=== PATIENT | male | born 1950 | race Caucasian/White ===

== ENCOUNTER 2021-02-28 14:18 | Inpatient (IN) | payer MEDICARE, OTHER ==
[~2021-02-28] VITALS: Ht 180.3 cm; Wt 127.1 kg
[2021-02-28 15:18] LABS: Basophils # (auto) 0.1 10 ^3/uL (0-0.2); Basophils % (auto) 0.7 % (0.0-2.0); Eosinophils # (auto) 0.2 10 ^3/uL (0-0.8); Eosinophils % (auto) 2.9 % (0.0-7.0); Hemoglobin 13.7 g/dL (13.5-17.5); Lymphocytes # (auto) 2.9 10 ^3/uL (0.4-5.4); Lymphocytes % (auto) 38.6 % (10.0-50.0); Mean Corpuscular Hemoglobin 32.3 pg (28.0-32.0); Mean Corpuscular Hgb Conc. 33.3 g/dL (32.0-36.0); Mean Corpuscular Volume 96.8 fL (80.0-100.0); Monocytes # (auto) 0.7 10 ^3/uL (0-1.3); Monocytes % (auto) 9.1 % (0.0-12.0); Neutrophils # (auto) 3.7 10 ^3/uL (1.6-8.6); Neutrophils % (auto) 48.7 % (37.0-80.0); Nucleated Red Blood Cells % 0.1 %; Red Blood Cells 4.24 10^6/uL (4.5-5.90); White Blood Cell 7.5 10^3/uL (4.4-10.8)
[2021-02-28 15:32] LABS: INR 1.05 (0.9-1.15); Partial Thromboplastin Time 30.7 sec (23.6-33.0)
[2021-02-28 15:45] LABS: Calcium 8.2 mg/dL (8.5-10.1); Potassium 3.7 mmol/L (3.5-5.1)
[2021-02-28 15:48] LABS: BUN/Creatinine Ratio 14.5; Total Protein 6.8 g/dL (6.4-8.2)
[2021-02-28] MEDS ORDERED: MORPHINE SULFATE INJECTION 2 MG/ML SYRG IV PRN ×3 (18:45→19:45)
[2021-02-28] MEDS ORDERED: NITROGLYCERIN 0.4 MG SL TAB SL PRN ×2 (18:45→19:45)
[2021-02-28] MEDS ORDERED: AMITRIPTYLINE HCL 10 MG TAB PO ONE (19:15)
[2021-02-28] MEDS ORDERED: ALPRAZolam 0.5 MG TAB PO ONE (19:15)
[2021-02-28] MEDS ORDERED: DOCUSATE SOD 100 MG CAP PO PRN (19:45)
[2021-02-28] MEDS ORDERED: ACETAMINOPHEN 325 MG TAB PO PRN (19:45)
[2021-02-28] MEDS ORDERED: HYDROcodone-ACET 5/325MG TAB PO PRN (19:45)
[2021-02-28] MEDS ORDERED: METOPROLOL SUCCINATE XL 50 MG TAB PO ONE (19:45)
[2021-02-28] MEDS ORDERED: ONDANSETRON HCL 4 MG/2 ML VIAL IV PRN (19:45)
[2021-02-28] MEDS ORDERED: ALUM & MAG HYDROX-SIMETH LIQ(MAALOX) 30 ML PO PRN (19:45)
[2021-02-28] MEDS ORDERED: DEXTROSE (50%) 50ML SYRG IV PRN (19:45)
[2021-02-28 19:53] LABS: Cholesterol 108 mg/dL (< 200)
[2021-02-28 19:57] LABS: HDL Cholesterol 38 mg/dL (40-59); LDL Cholesterol 65 mg/dL (< 100); Triglycerides 88 mg/dL (< 150)
[2021-02-28] MEDS: ATORVASTATIN 20 MG TAB PO SCH (22:18)
[2021-02-28] MEDS: GABAPENTIN 100 MG CAP PO SCH (22:19)
[2021-02-28] MEDS: POTASSIUM CHL 20 Meq TABLET PO SCH (22:19)
[2021-02-28] MEDS: APIXABAN 2.5 MG TAB PO SCH (22:19)
[2021-02-28] MEDS: ACCU-CHEK COMFORT CURVE STRIP VI SCH (22:20)
[2021-02-28] MEDS: InsuLIN REG 1unit/0.01ml Soln (100units/ml) SC SCH (22:22)
[2021-02-28 23:15] VITALS: BP 119/44
[2021-03-01] MEDS ORDERED: TERA5CAP2 PO (00:21)
[2021-03-01] MEDS ORDERED: LEVO200T7 PO (00:21)
[2021-03-01] MEDS ORDERED: METO1TAB9 PO (00:21)
[2021-03-01] MEDS ORDERED: DILT-29 PO (00:21)
[2021-03-01] MEDS ORDERED: APIX5TAB PO (00:21)
[2021-03-01] MEDS ORDERED: EZET1TAB90 PO (00:21)
[2021-03-01] MEDS ORDERED: CALC0.25 PO (00:21)
[2021-03-01] MEDS ORDERED: INSLANTI SC (00:21)
[2021-03-01] MEDS ORDERED: BUME2TAB5 PO (00:21)
[2021-03-01] MEDS ORDERED: LORA2TAB12 PO (00:21)
[2021-03-01] MEDS ORDERED: LEVO175T66 PO (00:21)
[2021-03-01] MEDS: LORazepam 0.5 MG TAB PO PRN ×2 (01:37→14:01)
[2021-03-01 02:38] LABS: Alcohol, Urine < 3.0 mg/dL (0-10); Amphetamine Screen, Urine NEGATIVE (NEGATIVE); Barbiturate Scree,Urine NEGATIVE (NEGATIVE); Benzodiazephine Screen, Urine NEGATIVE (NEGATIVE); Cannabinoid Screen, Urine POSITIVE (NEGATIVE); Cocaine Screen, Urine NEGATIVE (NEGATIVE); Opiate Scree,Urine NEGATIVE (NEGATIVE); Phencyclidine Screen, Urine NEGATIVE (NEGATIVE)
[2021-03-01 03:08] LABS: Urine Bacteria NONE SEEN /hpf (None Seen); Urine Blood TRACE /uL (Negative); Urine Hyaline Cast FEW /lpf (0 - 2); Urine WBC 1 /hpf (0 - 3)
[2021-03-01 05:11] VITALS: BP 111/61
[2021-03-01 05:33] LABS: Basophils # (auto) 0 10 ^3/uL (0-0.2); Basophils % (auto) 0.7 % (0.0-2.0); Eosinophils # (auto) 0.3 10 ^3/uL (0-0.8); Eosinophils % (auto) 3.9 % (0.0-7.0); Hematocrit 40.8 % (41.0-53.0); Hemoglobin 13.9 g/dL (13.5-17.5); Lymphocytes # (auto) 2.3 10 ^3/uL (0.4-5.4); Lymphocytes % (auto) 33.1 % (10.0-50.0); Mean Corpuscular Hemoglobin 33.2 pg (28.0-32.0); Mean Corpuscular Volume 97.6 fL (80.0-100.0); Monocytes # (auto) 0.6 10 ^3/uL (0-1.3); Monocytes % (auto) 9.3 % (0.0-12.0); Neutrophils # (auto) 3.6 10 ^3/uL (1.6-8.6); Nucleated Red Blood Cells % 0.1 %; Red Blood Cells 4.18 10^6/uL (4.5-5.90); Red Cell Distribution Width 13.3 % (11.8-14.3); White Blood Cell 6.8 10^3/uL (4.4-10.8)
[2021-03-01 05:38] LABS: Albumin 2.8 g/dL (3.4-5.0); Calcium 8.1 mg/dL (8.5-10.1); Magnesium 3.1 mg/dL (1.6-2.6); Potassium 3.8 mmol/L (3.5-5.1)
[2021-03-01 05:49] LABS: BUN/Creatinine Ratio 14.8; Bilirubin, Total 0.9 mg/dL (0.2-1.0); Phosphorus 3.9 mg/dL (2.5-4.90); Total Protein 6.4 g/dL (6.4-8.2)
[2021-03-01 05:56] LABS: INR 1.09 (0.9-1.15); Partial Thromboplastin Time 30.2 sec (23.6-33.0)
[2021-03-01] MEDS ORDERED: FUROSEMIDE 40 MG/4 ML VIAL IV SCH (06:00)
[2021-03-01] MEDS: GABAPENTIN 100 MG CAP PO SCH ×3 (06:30→21:53)
[2021-03-01] MEDS: ACCU-CHEK COMFORT CURVE STRIP VI SCH ×4 (06:34→21:55)
[2021-03-01] MEDS: LEVOTHYROXINE SODIUM 100 MCG TAB PO SCH (06:34)
[2021-03-01] MEDS: InsuLIN REG 1unit/0.01ml Soln (100units/ml) SC SCH ×4 (06:35→21:54)
[2021-03-01 09:00] VITALS: BP 125/75
[2021-03-01] MEDS ORDERED: METOPROLOL SUCCINATE XL 50 MG TAB PO SCH (10:00)
[2021-03-01] MEDS: ASPirin 81 mg TAB PO SCH (10:29)
[2021-03-01] MEDS: APIXABAN 2.5 MG TAB PO SCH ×2 (10:30→21:51)
[2021-03-01] MEDS: dilTIAZem HCL 180MG ER CAP PO SCH (10:30)
[2021-03-01] MEDS: METOPROLOL TARTRATE 25 MG TAB PO SCH ×2 (10:31→21:52)
[2021-03-01] MEDS: POTASSIUM CHL 20 Meq TABLET PO SCH ×2 (10:31→21:53)
[2021-03-01 13:00] VITALS: BP 127/72
[2021-03-01] MEDS: ALLOPURINOL 100 MG TAB PO SCH (13:53)
[2021-03-01 16:44] VITALS: BP 96/60
[2021-03-01] MEDS: FUROSEMIDE 20 MG/2 ML VIAL IV SCH (18:14)
[2021-03-01 19:46] VITALS: BP 128/71
[2021-03-01] MEDS: ATORVASTATIN 20 MG TAB PO SCH (21:51)
[2021-03-01 22:00] VITALS: BP 125/74
[2021-03-02 05:00] VITALS: BP 127/82
[2021-03-02] MEDS: FUROSEMIDE 20 MG/2 ML VIAL IV SCH (05:56)
[2021-03-02] MEDS: GABAPENTIN 100 MG CAP PO SCH (05:57)
[2021-03-02] MEDS: LEVOTHYROXINE SODIUM 100 MCG TAB PO SCH (05:58)
[2021-03-02] MEDS: ACCU-CHEK COMFORT CURVE STRIP VI SCH (05:59)
[2021-03-02] MEDS: InsuLIN REG 1unit/0.01ml Soln (100units/ml) SC SCH (05:59)
[2021-03-02 06:10] LABS: Basophils # (auto) 0 10 ^3/uL (0-0.2); Basophils % (auto) 0.5 % (0.0-2.0); Eosinophils # (auto) 0.2 10 ^3/uL (0-0.8); Eosinophils % (auto) 3.5 % (0.0-7.0); Hematocrit 44.4 % (41.0-53.0); Hemoglobin 14.5 g/dL (13.5-17.5); Lymphocytes # (auto) 2.7 10 ^3/uL (0.4-5.4); Lymphocytes % (auto) 39.3 % (10.0-50.0); Mean Corpuscular Hgb Conc. 32.8 g/dL (32.0-36.0); Mean Corpuscular Volume 97.6 fL (80.0-100.0); Monocytes # (auto) 0.5 10 ^3/uL (0-1.3); Monocytes % (auto) 7.8 % (0.0-12.0); Neutrophils # (auto) 3.3 10 ^3/uL (1.6-8.6); Neutrophils % (auto) 48.9 % (37.0-80.0); Nucleated Red Blood Cells % 0.1 %; Red Blood Cells 4.54 10^6/uL (4.5-5.90); Red Cell Distribution Width 13.5 % (11.8-14.3); White Blood Cell 6.8 10^3/uL (4.4-10.8)
[2021-03-02 06:24] LABS: Potassium 3.7 mmol/L (3.5-5.1)
[2021-03-02 06:30] LABS: BUN/Creatinine Ratio 16.3; Calcium 7.8 mg/dL (8.5-10.1)
[2021-03-02 09:41] VITALS: BP 146/86
[2021-03-02] MEDS: ASPirin 81 mg TAB PO SCH (10:51)
[2021-03-02] MEDS: APIXABAN 2.5 MG TAB PO SCH (10:52)
[2021-03-02] MEDS: dilTIAZem HCL 180MG ER CAP PO SCH (10:52)
[2021-03-02] MEDS: POTASSIUM CHL 20 Meq TABLET PO SCH (10:53)
[2021-03-02] MEDS: METOPROLOL TARTRATE 25 MG TAB PO SCH (10:53)
[2021-03-02] MEDS: ALLOPURINOL 100 MG TAB PO SCH (10:54)
[2021-03-02 10:56] LABS: Free T3 1.68 pg/mL (2.3-4.2); Free T4 (Free Thyroxine) 1.5 ng/dL (0.89-1.76)
[2021-03-02 12:58] VITALS: BP 137/78
== END 2021-03-02 13:10 | disposition left against medical advice (07) | DRG 291 ==
LOC: ER 14:18 → EDBD 14:18 → TELE 19:32 → TELE-CENTR 23:08
PROVIDERS: ADMIT Hospitalist; ATTEND Internal Medicine Pulmonary Disease
PROC: 5A09357 Assistance with Respiratory Ventilation, Less than 24 Consecutive Hours, Continuous Positive Airway Pressure (ICD-10-PCS; principal; 2021-03-01)
DX: I13.2 Hypertensive heart and chronic kidney disease with heart failure and with stage 5 chronic kidney disease, or end stage renal disease (principal); I50.21 Acute systolic (congestive) heart failure; N17.9 Acute kidney failure, unspecified; E44.0 Moderate protein-calorie malnutrition; C85.90 Non-Hodgkin lymphoma, unspecified, unspecified site; I48.19 Other persistent atrial fibrillation; S00.03XA Contusion of scalp, initial encounter; E66.01 Morbid (severe) obesity due to excess calories; E11.40 Type 2 diabetes mellitus with diabetic neuropathy, unspecified; R55 Syncope and collapse; E79.0 Hyperuricemia without signs of inflammatory arthritis and tophaceous disease; E03.2 Hypothyroidism due to medicaments and other exogenous substances; W18.39XA Other fall on same level, initial encounter; Z53.29 Procedure and treatment not carried out because of patient's decision for other reasons; Z20.822 Contact with and (suspected) exposure to COVID-19; G47.00 Insomnia, unspecified; E78.5 Hyperlipidemia, unspecified; F12.90 Cannabis use, unspecified, uncomplicated; E11.22 Type 2 diabetes mellitus with diabetic chronic kidney disease; Z92.21 Personal history of antineoplastic chemotherapy; Z68.30 Body mass index [BMI] 30.0-30.9, adult; Z79.01 Long term (current) use of anticoagulants; Z79.4 Long term (current) use of insulin; Z80.8 Family history of malignant neoplasm of other organs or systems; Y93.89 Activity, other specified; Y92.091 Bathroom in other non-institutional residence as the place of occurrence of the external cause; Y99.8 Other external cause status
CPT/HCPCS: 36415; 70450; 71045; 76775; 80048; 80053; 80061; 80307; 81001; 82306; 82962; 83036; 83735; 83880; 83970; 84100; 84439; 84443; 84481; 84484; 84550; 85025; 85379; 85610; 85730; 87040; 87086; 87426; 93005; 93306; 93886; 93970; 94660; G0378; J1815